=== PATIENT | male | born 1970 | race Caucasian/White ===

== ENCOUNTER → 2017-06-07 | Outpatient (CLI) | payer OTHER ==
[~2017-06-07] MED LIST: CLARITIN 10MG T10 MG PO; FLONASE 50 MCG16 GM; ZOFRAN4 MG PO
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
== END ==
LOC: RAD 14:43
DX: M54.2 Cervicalgia (principal)

== ENCOUNTER → 2017-06-11 | Outpatient (CLI) | payer OTHER ==
[2017-06-11 12:45] LABS: HEMOGLOBIN 17.4 g/dL (14.1-18.0); LYMPH # 2.2 K/mm3 (0.7-4.5); LYMPH % 27.9 % (10-50)
[2017-06-11 14:25] LABS: BUN 14 mg/dL (7-18)
[2017-06-11 14:26] LABS: GFR (ESTIMATED) 80 ML/MIN (>60)
== END ==
LOC: LAB 12:13
PROVIDERS: Nurse Practitioner Family
DX: R53.83 Other fatigue (principal)